=== PATIENT | female | born 1980 | race Caucasian/White ===

== ENCOUNTER 2018-04-12 08:44 | Emergency (ER) | payer MEDICAID ==
[2018-04-12] MEDS ORDERED: ACETAMINOPHEN 325 MG TABLET PO ONE (09:20)
--- NOTE | 2018-04-12 09:26 | ER Document Report ---
ED Extremity Problem, Lower - General Chief Complaint: Foot Pain Stated Complaint: RIGHT FOOT PAIN Time Seen by Provider: 04/12/18 09:08 Mode of Arrival: Ambulatory Information source: Patient Notes: 38-year-old female presented to ED for complaint of pain to the right foot and ankle after she injured it Monday night while she was intoxicated. She is not sure what she did to it yesterday morning she states she was still slightly intoxicated so it did not hurt but by yesterday afternoon the pain was getting more severe. She is alert and oriented pupils equal react to light speaking in full sentences does walk with a steady gait with a slight limp. TRAVEL OUTSIDE OF THE [place] IN LAST 30 DAYS: No - HPI Patient complains to provider of: Injury, Pain. No: Swelling Location: Ankle, Foot Occurred: Other - Monday Where: Public place Onset/Duration: Persistent Quality of pain: Sharp Severity: Moderate Pain Level: 4 Context: Wearing shoes Recent injury: Yes Associated symptoms: Painful ambulation Exacerbated by: Movement, Walking Relieved by: Elevation, Ice, Rest - Related Data Allergies/Adverse Reactions: No Known Allergies Allergy (Verified 04/12/18 08:47) Past Medical History - Social History Smoking Status: Current Every Day Smoker Cigarette use (# per day): Yes - 3 per day Chew tobacco use (# tins/day): No Smoking Education Provided: Yes - 4 minutes Frequency of alcohol use: Social Drug Abuse: Marijuana Occupation: [employer] Lives with: Family Family History: Reviewed & Not Pertinent Patient has suicidal ideation: No Patient has homicidal ideation: No - Past Medical History Cardiac Medical History: Reports: Hx Hypertension - Press syndrome Pulmonary Medical History: Reports: None EENT Medical History: Reports: None Neurological Medical History: Reports: None Endocrine Medical History: Reports: None Renal/ Medical History: Reports: None Malignancy Medical History: Reports: None GI Medical History: Reports: None Musculoskeltal Medical History: Reports None Skin Medical History: Reports None Psychiatric Medical History: Reports: None Traumatic Medical History: Reports: None Infectious Medical History: Reports: None Past Surgical History: Reports: Hx Section, Hx Gynecologic Surgery - c- section 5 months ago - Immunizations Hx Diphtheria, Pertussis, Tetanus Vaccination: No Review of Systems - Review of Systems Constitutional: No symptoms reported EENT: No symptoms reported Cardiovascular: No symptoms reported Respiratory: No symptoms reported Gastrointestinal: No symptoms reported Genitourinary: No symptoms reported Female Genitourinary: No symptoms reported Musculoskeletal: Ankle swelling - Right foot and ankle pain Skin: No symptoms reported Hematologic/Lymphatic: No symptoms reported Neurological/Psychological: No symptoms reported -: Yes All other systems reviewed and negative Physical Exam - Vital signs Vitals: Temp Pulse Resp BP Pulse Ox 97.7 F 75 18 142/109 H 97 04/12/18 08:49 04/12/18 08:49 04/12/18 08:49 04/12/18 08:49 04/12/18 08:49 Interpretation: Normal - General General appearance: Appears well, Alert - HEENT Head: Normocephalic, Atraumatic Eyes: Normal Pupils: PERRL - Respiratory Respiratory status: No respiratory distress Chest status: Nontender Breath sounds: Normal Chest palpation: Normal - Cardiovascular Rhythm: Regular Heart sounds: Normal auscultation Murmur: No - Abdominal Inspection: Normal Distension: No distension Bowel sounds: Normal Tenderness: Nontender Organomegaly: No organomegaly - Back Back: Normal, Nontender - Extremities General upper extremity: Normal inspection, Nontender, Normal color, Normal ROM , Normal temperature General lower extremity: Normal color, Normal temperature, Normal weight bearing. No: Jillian's sign Ankle: Tender, Ecchymosis, Edema Foot: Tender, Ecchymosis, Edema, No evidence of FB - Neurological Neuro grossly intact: Yes Cognition: Normal Orientation: AAOx4 Ni Coma Scale Eye Opening: Spontaneous Ni Coma Scale Verbal: Oriented Sumner Coma Scale Motor: Obeys Commands Ni Coma Scale Total: 15 Speech: Normal Motor strength normal: LUE, RUE, LLE, RLE Sensory: Normal - Psychological Associated symptoms: Normal affect, Normal mood - Skin Skin Temperature: Warm Skin Moisture: Dry Skin Color: Normal Course - Re-evaluation Re-evalutation: 04/12/18 10:45 The patient is nontoxic appearing with stable vitals. They are afebrile. Ankle exam shows no deformities with no obvious ligament instability. There is a normal pulse and sensation distally. There is no redness or signs of infection. X-rays show no acute fracture per the radiologist. Patient will be placed in an Joel wrap for comfort. Crutches will be offered and given if requested. Patient will be instructed to follow-up with not better in 1 week, sooner for increasing pain, fever, redness, numbness, tingling, weakness, any further concerns. Patient will be instructed to rest, ice, elevate their ankle. - Vital Signs Vital signs: Temp Pulse Resp BP Pulse Ox 97.6 F 54 L 20 150/106 H 98 04/12/18 11:01 04/12/18 11:01 04/12/18 11:01 04/12/18 11:01 04/12/18 11:01 - Diagnostic Test Radiology reviewed: Image reviewed, Reports reviewed Procedures - Immobilization Right Ankle Immobilizer type: Joel wrap, Crutches Performed by: PCT Post-Proc Neuro Vasc Exam: Normal Alignment checked and good: Yes Discharge - Discharge Clinical Impression: Right ankle sprain Qualifiers: Encounter type: initial encounter Involved ligament of ankle: unspecified ligament Qualified Code(s): S93.401A - Sprain of unspecified ligament of right ankle, initial encounter Contusion of right foot Qualifiers: Encounter type: initial encounter Qualified Code(s): S90.31XA - Contusion of right foot, initial encounter HTN (hypertension) Qualifiers: Hypertension type: unspecified Qualified Code(s): I10 - Essential (primary) hypertension Condition: Stable Disposition: HOME, SELF-CARE Additional Instructions: SPRAINED ANKLE: Your sprained ankle results from stretching or tearing of the ligaments which support the ankle. This usually results from twisting the foot inward and under. The ligaments will require time and protection in order to heal properly. Many ankle sprains are quite disabling, and should be taken seriously. The usual treatment for an ankle sprain is cold packs; protection with tape , splints, or wraps; elevation; and staying off the ankle for at least a day. As the ankle improves, you can walk IF it's not painful to bear weight. Sports are best postponed until healing is complete. More serious sprains usually require strengthening exercises after early healing. Your physician has assessed the seriousness of the ligament injury to your ankle. However, the treatment may change, depending on how your ankle progresses. If further exams were recommended, it is important that you follow through. Call the doctor if your foot becomes numb, painful, or severely swollen. Contusion Your injury has resulted in a contusion -- a crushing of the deep tissues. No injury to important structures was detected during the physician's exam. Contusions vary in the amount of pain they cause, and in the length of time required for healing. Typically, the area will become bruised, and will remain painful to touch for two or three weeks. However, most patients are back to working and playing within a few days. After the initial period of rest and cold-packs, your symptoms (together with the doctor's recommendations) will determine how rapidly you can get back to full activity. Usually this means "do what feels okay, but don't do things that hurt." If re-examination was recommended, it's important to follow up as instructed. Call the doctor or return any time if pain increases, if swelling becomes severe, if you develop numbness or weakness in an injured extremity, or if any other alarming symptoms occur. JOEL WRAP: A compression dressing (joel wrap) has been placed. This helps hold the area still. It limits swelling and internal bleeding. The wrap should be comfortably snug -- not tight. You should feel a sense of pressure, but not severe pain under the wrap. Unless the physician tells you otherwise, you can adjust the wrap for comfort. If the wrap causes symptoms suggesting it's too tight -- uncomfortable pressure, swelling or discoloration beyond the wrap, numbness, or severe pain - - you must loosen the wrap. If these symptoms don't resolve promptly, return for re-evaluation. USE OF CRUTCHES: The doctor has recommended that you not bear weight at this time. You will need to use crutches. Adjust the crutches so the tops come to about two inches under the armpit while you are standing upright. Use your hands -- not your armpits -- to support your weight. To get into a chair, support yourself with one crutch on the injured side. Hold the chair with the other hand, then lower yourself while putting all your weight on the good leg. Going up stairs is `good leg up, step up, then bring up crutches and bad leg.' Down stairs is `bad leg and crutches down, then bring good leg down.' If you develop numbness or swelling in an arm or hand, you are using the crutches incorrectly. Return if you are having any problems with the crutches. ICE & ELEVATION: Apply ice packs frequently against the painful area. Many different schedules are recommended, such as "20 minutes on, 20 minutes off" or "one hour ice, two hours rest." If you need to work, you may need to go longer between ice treatments. You should plan to have the area ice packed AT LEAST one- fourth of the time. The ice should be applied over the wrap, tape, or splint, or over a layer of cloth -- not directly against the skin. Some ice bags have a built-in cloth and can be put directly on the skin. Your injured part should be elevated as much as possible over the next 48 hours. Try to keep the injury above the level of the heart. Avoid use of the injured area. Elevation and rest will decrease the swelling. USE OF HPIG-HVC-VOAXAXB IBUPROFEN: Ibuprofen (Advil, Nuprin, Medipren, Motrin IB) is a medication for fever and pain control. In addition, it has anti- inflammatory effects which may be beneficial, especially in the treatment of injuries. It's best to take ibuprofen with food. Persons with ulcer disease or allergy to aspirin should notify their physician of this before taking ibuprofen. Ibuprofen can be given every four to six hours, for a total of four doses daily. Age Pain or fever dose Antiinflammatory dose 6-8 yr 200 mg (1 tab) 200 mg (1 tab) 9-11 yr 200 mg (1 tab) 200-400 mg (1-2 tab) 11-14 yr 200-400 mg (1-2 tab) 400 mg (2 tab) 15-adult 400 mg (2 tab) 600 mg (3 tab) FOLLOW-UP CARE: If you have been referred to a physician for follow-up care, call the physician s office for an appointment as you were instructed or within the next two days. If you experience worsening or a significant change in your symptoms, notify the physician immediately or return to the Emergency Department at any time for re-evaluation. Forms: Elevated Blood Pressure, Return to Work Referrals: TAYLER LYLE MD [Primary Care Provider] - Follow up as needed JORGE A BARNETT MD [ACTIVE STAFF] - Follow up as needed
--- NOTE | 2018-04-12 10:38 | RADIOLOGY REPORT (SQ) ---
EXAM DESCRIPTION: ANKLE RIGHT COMPLETE COMPLETED DATE/TIME: 04/12/2018 10:01 am REASON FOR STUDY: Pain from injury 2 days ago was intoxicated COMPARISON: None. NUMBER OF VIEWS: Three views. TECHNIQUE: AP, lateral, and oblique radiographic images acquired of the right ankle. LIMITATIONS: None. FINDINGS: MINERALIZATION: Normal. BONES: No acute fracture or dislocation. No worrisome bone lesions. JOINTS: No effusions. SOFT TISSUES: No soft tissue swelling. No foreign body. OTHER: No other significant finding. IMPRESSION: NEGATIVE STUDY OF THE RIGHT ANKLE. NO RADIOGRAPHIC EVIDENCE OF ACUTE INJURY. TECHNICAL DOCUMENTATION: JOB ID: [id number] [employer]- All Rights Reserved Reading location - IP/workstation name: [email or web address]
--- NOTE | 2018-04-12 10:40 | RADIOLOGY REPORT (SQ) ---
EXAM DESCRIPTION: FOOT RIGHT COMPLETE COMPLETED DATE/TIME: 04/12/2018 10:01 am REASON FOR STUDY: Pain from injury 2 days ago was intoxicated COMPARISON: None. NUMBER OF VIEWS: Three views. TECHNIQUE: AP, lateral and oblique radiographic images acquired of the right foot. LIMITATIONS: None. FINDINGS: MINERALIZATION: Normal. BONES: No acute fracture or dislocation. No worrisome bone lesions. JOINTS: No effusions. SOFT TISSUES: No soft tissue swelling. No foreign body. OTHER: Separate bony ossicle is identified at the level of the medial malleolus and adjacent to the c uboid tarsal bone which are not felt to represent acute fractures. IMPRESSION: NEGATIVE STUDY OF THE RIGHT FOOT. NO RADIOGRAPHIC EVIDENCE OF ACUTE INJURY. TECHNICAL DOCUMENTATION: JOB ID: [id number] [employer]- All Rights Reserved Reading location - IP/workstation name: [email or web address]
[2018-04-12 11:02] VITALS: BP 150/106
== END 2018-04-12 11:03 | disposition home or self-care (01) ==
LOC: ER 08:44
DX: S93.401A Sprain of unspecified ligament of right ankle, initial encounter (principal); S90.31XA Contusion of right foot, initial encounter; X58.XXXA Exposure to other specified factors, initial encounter; I10 Essential (primary) hypertension; F17.210 Nicotine dependence, cigarettes, uncomplicated; Z71.6 Tobacco abuse counseling
CPT/HCPCS: 99406; 99283; 73610; 73630; J3490

== ENCOUNTER 2018-07-09 14:18 | Emergency (ER) | payer MEDICAID ==
[2018-07-09 14:35] VITALS: BP 124/81
--- NOTE | 2018-07-09 15:36 | ER Document Report ---
HPI - HPI Patient complains to provider of: test positive Onset: Yesterday Onset/Duration: Gradual Pain Level: Denies Context: Patient states she has a history of hypertension and notes that she is on medications that should be adjusted due to recently finding out that she is . Patient denies any symptoms other than a concern about her medication regimen. Associated Symptoms: None Exacerbated by: Denies Relieved by: Denies Similar symptoms previously: No Recently seen / treated by doctor: No - ROS ROS below otherwise negative: Yes Systems Reviewed and Negative: Yes All other systems reviewed and negative - CONSTITUTIONAL Constitutional: DENIES: Fever - CARDIOVASCULAR Cardiovascular: DENIES: Chest pain - GASTROINTESTINAL Gastrointestinal: DENIES: Abdominal Pain - URINARY Urinary: DENIES: Dysuria, Urgency, Frequency - REPRODUCTIVE Reproductive: REPORTS: :. 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 IN LAST 30 DAYS: No - HEENT HEENT: Atraumatic, Normal ENT Exam, Normocephalic - NECK Neck: Normal Inspection, Supple - RESPIRATORY Respiratory: Breath Sounds Normal, No Respiratory Distress - CARDIOVASCULAR Cardiovascular: Regular Rate, Regular Rhythm - BACK Back: Normal Inspection - MUSCULOSKELETAL/EXTREMETIES Musculoskeletal/Extremeties: MAEW - NEURO Level of Consciousness: Awake, Alert, Appropriate Motor/Sensory: No Motor Deficit - DERM Integumentary: Warm, Dry, No Rash Course - Re-evaluation Re-evalutation: 07/09/18 16:[address] Butler regarding patient presentation and concern about hypertension medications. Advises follow-up in the office tomorrow at 930 and have patient bring all of her medications. States patient's history of antihypertensive use is too complex to be addressed over the phone and that a physician will need to talk with her about all the risks with adjusting her medications. - Vital Signs Vital signs: Temp Pulse Resp BP Pulse Ox 98.3 F 63 18 124/81 100 07/09/18 14:33 07/09/18 14:33 07/09/18 14:33 07/09/18 14:33 07/09/18 14:33 - Laboratory Laboratory results interpreted by me: 07/09/18 16:12 Labs- Entire Visit 07/09/18 15:35 Urine HCG, Qual POSITIVE H Discharge - Discharge Clinical Impression: test positive, Hx of essential hypertension Condition: Stable Disposition: HOME, SELF-CARE Instructions: ([facility]) Additional Instructions: Return immediately for any new or worsening symptoms Followup with [facility] tomorrow at 9:30 in the morning. Be sure to bring all your medication bottles with you at that time. Forms: Smoking Cessation Education Referrals: [facility] [Provider Group] - Follow up tomorrow
== END 2018-07-09 16:48 | disposition home or self-care (01) ==
LOC: ER 14:18
DX: Z32.01 Encounter for pregnancy test, result positive (principal); I10 Essential (primary) hypertension; Z79.899 Other long term (current) drug therapy; F17.200 Nicotine dependence, unspecified, uncomplicated
CPT/HCPCS: 81025; 99282

== ENCOUNTER → 2019-08-26 | Outpatient (CLI) | payer SELFPAY ==
--- NOTE | 2019-08-26 16:23 | RADIOLOGY REPORT (SQ) ---
EXAM DESCRIPTION: U/S [id number] TRNABD 1GES W/ODOP COMPLETED DATE/TIME: 08/26/2019 2:36 pm REASON FOR STUDY: Z34.81 ENCOUNTER FOR SUPRVSN OF NORMAL , FIRST TRIMESTER Z34.81 ENCOUNTE R FOR SUPRVSN OF NORMAL , FIRST TRIM COMPARISON: No previous this TECHNIQUE: Transabdominal static and realtime grayscale images acquired of the pelvis. Additional se lected spectral and color Doppler images recorded. All images stored on PACs. bHCG: Unavailable CLINICAL DATES: Unknown LIMITATIONS: Ovaries not seen due to adnexal bowel gas FINDINGS: FETUS: Single Living intrauterine . ULTRASOUND EGA: 6 weeks 3 days ULTRASOUND RASHAD: 04/17/2020 EFW: Not applicable less than 20 weeks. CRL: 6 mm FHR: 123 beats per minute. SURVEY: Too early to assess AMNIOTIC FLUID: Adequate amount. PLACENTA: Not yet developed due to early gestation. SUBCHORIONIC BLEED: No SIZE OF BLEED: Not applicable. UTERUS: No masses. No anomalies. Uterus is 11 x 8 x 5 cm in size CERVICAL LENGTH: 4 cm in length. Closed. RIGHT ADNEXA: Ovary not identified due to poor acoustical window. No adnexal free fluid. No adnexal masses. LEFT ADNEXA: Ovary not identified due to poor acoustical window. No adnexal free fluid. No adnexal masses. FREE FLUID: None. OTHER: No other significant finding. IMPRESSION: LIVING INTRAUTERINE . EGA 6 weeks 3 days, embryo cardiac activity 123 beats per minute Ovaries not identified due to limited acoustic window Trimester of : First trimester - 0 to 13 weeks. TECHNICAL DOCUMENTATION: JOB ID: [id number] [employer]- All Rights Reserved rev Reading location - IP/workstation name: [email or web address]
== END ==
LOC: RAD 13:41
PROVIDERS: ATTEND Nurse Practitioner Family
DX: Z34.81 Encounter for supervision of other normal pregnancy, first trimester (principal)
CPT/HCPCS: 76801

== ENCOUNTER 2020-03-17 10:10 | Outpatient (CLI) | payer MEDICAID ==
[2020-03-17 10:42] LABS: APPEARANCE,URINE SLIGHTLY-CLOUDY; BILIRUBIN,URINE NEGATIVE (NEGATIVE); COLOR,URINE YELLOW; GLUCOSE, URINE NEGATIVE (NEGATIVE); KETONES,URINE NEGATIVE (NEGATIVE); LEUKOCYTE ESTERASE,URINE MODERATE (NEGATIVE); NITRITE,URINE NEGATIVE (NEGATIVE); PROTEIN,URINE 30 mg/dL (NEGATIVE); URINE SPECIFIC GRAVITY 1.012; UROBILINOGEN,URINE NEGATIVE mg/dL (<2.0)
[2020-03-17 10:57] LABS: ABSOLUTE EOSINOPHILS # (AUTO) 0.3 10^3/uL (0.0-0.6); ABSOLUTE LYMPHOCYTES (AUTO) 1.6 10^3/uL (0.5-4.7); ABSOLUTE MONOCYTES (AUTO) 0.8 10^3/uL (0.1-1.4); ABSOLUTE NEUT (AUTO) 11.5 10^3/uL (1.7-8.2); BASOPHILS % (AUTO) 0.1 % (0-2); EOSINOPHILS % (AUTO) 2.2 % (0-6); HEMATOCRIT 34.1 % (36.0-47.0); HEMOGLOBIN 11.8 g/dL (12.0-15.5); LYMPHOCYTES % (AUTO) 11.2 % (13-45); MEAN CORPUSCULAR HGB CONC 34.6 g/dL (32.0-36.0); MEAN CORPUSCULAR VOLUME 84 fl (80-97); MONOCYTES % (AUTO) 5.6 % (3-13); PLATELET COUNT 283 10^3/uL (150-450); RED BLOOD COUNT 4.07 10^6/uL (3.72-5.28); RED CELL DISTRIBUTION WIDTH 13.5 % (11.5-14.0); SEGMENTED NEUTROPHILS % (AUTO) 80.9 % (42-78); TOTAL CELLS COUNTED % (AUTO) 100 %; WHITE BLOOD COUNT 14.2 10^3/uL (4.0-10.5)
[2020-03-17 11:10] LABS: UR PRO/CREAT RATIO RESULT 0.2 mg/mg (0.0-0.2); URINE CREATININE 95.6 mg/dL (16-327); URINE PROTEIN 19.2 mg/dL (<12)
[2020-03-17 11:12] LABS: URINE AMPHETAMINES SCREEN NEGATIVE; URINE BARBITURATES SCREEN NEGATIVE; URINE BENZODIAZEPINES SCREEN NEGATIVE; URINE COCAINE SCREEN NEGATIVE; URINE MARIJUANA (THC) SCREEN NEGATIVE; URINE METHADONE SCREEN NEGATIVE; URINE PHENCYCLIDINE SCREEN NEGATIVE
[2020-03-17 11:14] LABS: BACTERIA (WET MOUNT) 3+ BACTERIA SEEN; T.VAGINALIS (WET MOUNT) NO TRICHOMONAS SEEN; WBCS (WET MOUNT) 1+ WBCS SEEN; YEAST (WET MOUNT) NO YEAST SEEN
[2020-03-17 11:16] LABS: ALBUMIN 3.3 g/dL (3.5-5.0); ALKALINE PHOSPHATASE 109 U/L (38-126); ANION GAP 5 (5-19); ASPARTATE AMINO TRANSFERASE 23 U/L (14-36); BILIRUBIN,TOTAL 0.2 mg/dL (0.2-1.3); BLOOD UREA NITROGEN 3 mg/dL (7-20); CALCIUM 9.3 mg/dL (8.4-10.2); CARBON DIOXIDE 23 mmol/L (22-30); CHLORIDE 108 mmol/L (98-107); GLUCOSE 107 mg/dL (75-110); POTASSIUM 3.8 mmol/L (3.6-5.0); TOTAL PROTEIN 6.2 g/dL (6.3-8.2); URIC ACID 5.6 mg/dL (2.5-7.0)
[2020-03-17 12:42] LABS: CHLAM PCR NOT DETECTED (NOT DETECT)
== END 2020-03-17 11:37 | disposition home or self-care (01) ==
LOC: LC 10:10
PROVIDERS: ATTEND Obstetrics & Gynecology
DX: O14.93 Unspecified pre-eclampsia, third trimester (principal); Z3A.36 36 weeks gestation of pregnancy
CPT/HCPCS: 36415; 59025; 80053; 80307; 81001; 82570; 83615; 84156; 84550; 85025; 87081; 87210; 87491; 87591

== ENCOUNTER 2020-03-20 14:28 | Outpatient (CLI) | payer MEDICAID ==
[2020-03-20 15:51] LABS: APPEARANCE,URINE SLIGHTLY-CLOUDY; BILIRUBIN,URINE NEGATIVE (NEGATIVE); COLOR,URINE YELLOW; GLUCOSE, URINE NEGATIVE (NEGATIVE); KETONES,URINE NEGATIVE (NEGATIVE); LEUKOCYTE ESTERASE,URINE SMALL (NEGATIVE); NITRITE,URINE NEGATIVE (NEGATIVE); PROTEIN,URINE NEGATIVE (NEGATIVE); URINE SPECIFIC GRAVITY 1.009; UROBILINOGEN,URINE NEGATIVE mg/dL (<2.0)
[2020-03-20 16:11] LABS: URINE AMPHETAMINES SCREEN NEGATIVE; URINE BARBITURATES SCREEN NEGATIVE; URINE BENZODIAZEPINES SCREEN NEGATIVE; URINE COCAINE SCREEN NEGATIVE; URINE MARIJUANA (THC) SCREEN NEGATIVE; URINE METHADONE SCREEN NEGATIVE; URINE PHENCYCLIDINE SCREEN NEGATIVE
[2020-03-20 16:20] LABS: ABSOLUTE BASOPHILS # (AUTO) 0.1 10^3/uL (0.0-0.2); ABSOLUTE EOSINOPHILS # (AUTO) 0.3 10^3/uL (0.0-0.6); ABSOLUTE LYMPHOCYTES (AUTO) 1.8 10^3/uL (0.5-4.7); ABSOLUTE NEUT (AUTO) 10.6 10^3/uL (1.7-8.2); BASOPHILS % (AUTO) 0.6 % (0-2); EOSINOPHILS % (AUTO) 2.5 % (0-6); HEMATOCRIT 33.3 % (36.0-47.0); HEMOGLOBIN 11.6 g/dL (12.0-15.5); LYMPHOCYTES % (AUTO) 13.2 % (13-45); MEAN CORPUSCULAR HEMOGLOBIN 29.1 pg (27.0-33.4); MEAN CORPUSCULAR HGB CONC 34.8 g/dL (32.0-36.0); MEAN CORPUSCULAR VOLUME 84 fl (80-97); MONOCYTES % (AUTO) 7.1 % (3-13); PLATELET COUNT 260 10^3/uL (150-450); RED BLOOD COUNT 3.99 10^6/uL (3.72-5.28); RED CELL DISTRIBUTION WIDTH 13.6 % (11.5-14.0); SEGMENTED NEUTROPHILS % (AUTO) 76.6 % (42-78); TOTAL CELLS COUNTED % (AUTO) 100 %; WHITE BLOOD COUNT 13.8 10^3/uL (4.0-10.5)
[2020-03-20 16:28] LABS: URINE PROTEIN 25.2 mg/dL (<12)
[2020-03-20 16:29] LABS: 24 HOUR URINE PROTEIN RESULT 640 mg/day (42-225)
[2020-03-20 16:45] LABS: ALBUMIN 3.2 g/dL (3.5-5.0); ALKALINE PHOSPHATASE 113 U/L (38-126); ANION GAP 7 (5-19); ASPARTATE AMINO TRANSFERASE 26 U/L (14-36); BILIRUBIN,TOTAL 0.2 mg/dL (0.2-1.3); BLOOD UREA NITROGEN 4 mg/dL (7-20); CALCIUM 9.6 mg/dL (8.4-10.2); CARBON DIOXIDE 22 mmol/L (22-30); CHLORIDE 106 mmol/L (98-107); GLUCOSE 102 mg/dL (75-110); POTASSIUM 3.6 mmol/L (3.6-5.0); TOTAL PROTEIN 6.1 g/dL (6.3-8.2); URIC ACID 5.1 mg/dL (2.5-7.0)
--- NOTE | 2020-03-23 09:40 | Non Stress Test Report ---
Non Stress Test Datetime Report Generated by CPN: 03/23/2020 09:40 DEMOGRAPHIC EGA NST: 36.4 EGA NST: 36.1 INDICATION Indication for Study (NST) Other: Provider Order Indication for Study (NST) Other: Pre-e workup,nonreactive NSt in office MONITORING Monitor Explained: Monitor Explained; Test Explained; Patient Verbalized Understanding Monitor Explained: Monitor Explained; Test Explained; Patient Verbalized Understanding Time on Monitor: 03/20/2020 16:09 Time on Monitor: 03/17/2020 10:19 Time off Monitor: 03/20/2020 16:50 Time off Monitor: 03/17/2020 11:28 NST Duration: 41 NST Duration: 69 NST INTERVENTIONS NST Interventions: PO Hydration NST Interventions: PO Hydration Physician Notified NST: AWynn,CNM Physician Notified NST: A Drake CNM BABY A: [id number] BABY A Movement : Present Movement : Present Contraction Frequency : None Contraction Frequency : none FHR Baseline : 135 Accelerations : 15X15 Accelerations : 15X15 Decelerations : None Decelerations : None Variability : Moderate 6-25bpm Variability : Moderate 6-25bpm NST Review: Meets Criteria for Reactive NST NST Review: Meets Criteria for Reactive NST NST Review and Verified By : Omar Moulton RN NST Results: Reactive NST Results: Reactive NST REPORT Report Trigger: Send Report
[2020-03-24 12:36] LABS: HEPATITIS C QUANTITATION HCV Not Detected IU/mL (.)
== END 2020-03-20 17:07 | disposition home or self-care (01) ==
LOC: LC 14:28
PROVIDERS: ATTEND Obstetrics & Gynecology
DX: O11.3 Pre-existing hypertension with pre-eclampsia, third trimester (principal); O10.913 Unspecified pre-existing hypertension complicating pregnancy, third trimester; O99.333 Smoking (tobacco) complicating pregnancy, third trimester; F17.210 Nicotine dependence, cigarettes, uncomplicated; O09.523 Supervision of elderly multigravida, third trimester; Z3A.36 36 weeks gestation of pregnancy
CPT/HCPCS: 36415; 59025; 80053; 80307; 81005; 83615; 84156; 84550; 85025; 87522

== ENCOUNTER 2020-03-23 05:58 | Inpatient (IN) | payer MEDICAID ==
[2020-03-16 09:35] LABS: ABSOLUTE EOSINOPHILS # (AUTO) 0.4 10^3/uL (0.0-0.6); ABSOLUTE LYMPHOCYTES (AUTO) 1.9 10^3/uL (0.5-4.7); ABSOLUTE MONOCYTES (AUTO) 1.1 10^3/uL (0.1-1.4); ABSOLUTE NEUT (AUTO) 13.3 10^3/uL (1.7-8.2); BASOPHILS % (AUTO) 0.2 % (0-2); EOSINOPHILS % (AUTO) 2.2 % (0-6); HEMATOCRIT 35.7 % (36.0-47.0); HEMOGLOBIN 12.1 g/dL (12.0-15.5); LYMPHOCYTES % (AUTO) 11.1 % (13-45); MEAN CORPUSCULAR HEMOGLOBIN 28.4 pg (27.0-33.4); MEAN CORPUSCULAR HGB CONC 33.9 g/dL (32.0-36.0); MEAN CORPUSCULAR VOLUME 84 fl (80-97); MONOCYTES % (AUTO) 6.7 % (3-13); PLATELET COUNT 274 10^3/uL (150-450); RED BLOOD COUNT 4.26 10^6/uL (3.72-5.28); RED CELL DISTRIBUTION WIDTH 13.5 % (11.5-14.0); SEGMENTED NEUTROPHILS % (AUTO) 79.8 % (42-78); TOTAL CELLS COUNTED % (AUTO) 100 %; WHITE BLOOD COUNT 16.7 10^3/uL (4.0-10.5)
[2020-03-16 09:41] LABS: APPEARANCE,URINE CLEAR; BILIRUBIN,URINE NEGATIVE (NEGATIVE); COLOR,URINE YELLOW; GLUCOSE, URINE NEGATIVE (NEGATIVE); KETONES,URINE NEGATIVE (NEGATIVE); LEUKOCYTE ESTERASE,URINE SMALL (NEGATIVE); NITRITE,URINE NEGATIVE (NEGATIVE); PROTEIN,URINE NEGATIVE (NEGATIVE); URINE SPECIFIC GRAVITY 1.008; UROBILINOGEN,URINE NEGATIVE mg/dL (<2.0)
[2020-03-16 09:58] LABS: URINE AMPHETAMINES SCREEN NEGATIVE; URINE BARBITURATES SCREEN NEGATIVE; URINE BENZODIAZEPINES SCREEN NEGATIVE; URINE COCAINE SCREEN NEGATIVE; URINE MARIJUANA (THC) SCREEN NEGATIVE; URINE METHADONE SCREEN NEGATIVE; URINE PHENCYCLIDINE SCREEN NEGATIVE
[~2020-03-23 05:58] MED LIST: CEFAZOLIN SODIUM 2 GM in DEXTROSE 5%-WATER 100 ML IV PRN; LACTATED RINGERS 1000 ML IV PRN; LIDOCAINE 0.5% INJ-PF (5 MG/ML) 50 ML SDV SUBCUT PRN; RINGERS SOLUTION,LACTATED 1,000 ML IV PRN
[2020-03-23] MEDS ORDERED: RINGERS SOLUTION,LACTATED 1,000 ML IV ONE (06:45)
[2020-03-23] MEDS ORDERED: FENTANYL CITRATE INJ/PF 100 MCG/2 ML AMPUL ONE (07:25)
[2020-03-23] MEDS ORDERED: MIDAZOLAM 2 MG/2 ML INJ ONE (07:25)
[2020-03-23] MEDS ORDERED: KETOROLAC TROMETHAMINE INJ/PF 30 MG/1 ML SDV ONE (07:25)
[2020-03-23] MEDS ORDERED: EPHEDRINE SULFATE INJ 50 MG/1 ML AMPULE ONE (07:25)
[2020-03-23] MEDS ORDERED: OXYTOCIN 10 UNIT/ML VIAL ONE (07:25)
[2020-03-23] MEDS ORDERED: ACETAMINOPHEN 1,000 MG/100 ML RTUPB IV ONE (07:26)
[2020-03-23] MEDS ORDERED: METHYLERGONOVINE MALEATE INJ/PF 0.2 MG/1 ML AMPULE ONE (07:26)
[2020-03-23] MEDS ORDERED: ONDANSETRON HCL INJ/PF 4 MG/2 ML SDV ONE (07:26)
[2020-03-23] MEDS ORDERED: OXYCODONE-ACETAMINOPHEN 5-325 MG TABLET PO PRN ×3 (10:28→11:18)
[2020-03-23] MEDS ORDERED: ONDANSETRON HCL INJ/PF 4 MG/2 ML SDV IV PRN (10:28)
[2020-03-23] MEDS ORDERED: MEPERIDINE HCL/PF INJ 25 MG/1 ML DISP.SYRIN IV PRN (10:28)
[2020-03-23] MEDS ORDERED: DIPHENHYDRAMINE HCL 50 MG/ML VIAL IV PRN (10:28)
[2020-03-23] MEDS ORDERED: PROMETHAZINE HCL INJ 25 MG/1 ML VIAL IV PRN ×3 (10:28→11:18)
[2020-03-23] MEDS ORDERED: FENTANYL CITRATE INJ/PF 100 MCG/2 ML AMPUL IV PRN ×3 (10:28)
[2020-03-23] MEDS ORDERED: MORPHINE SULFATE 10 MG/ML INJ IV PRN (10:28)
[2020-03-23] MEDS ORDERED: MEASLES,MUMPS&RUBELLA VACC/PF 0.5 ML VIAL SUBCUT PRN (11:18)
[2020-03-23] MEDS ORDERED: SIMETHICONE 80 MG TAB.CHEW PO PRN (11:18)
[2020-03-23] MEDS ORDERED: DIPH/PERTUSS(ACELL)/TETANUS VAC/PF 0.5 ML SYR (>=10YO) IM PRN (11:18)
[2020-03-23] MEDS ORDERED: ACETAMINOPHEN 325 MG TABLET PO PRN (11:18)
[2020-03-23] MEDS ORDERED: RINGERS SOLUTION,LACTATED 1,000 ML IV PRN (11:18)
[2020-03-23] MEDS ORDERED: OXYTOCIN/NORMAL SALINE 20 UNIT/1,000 ML RTUINJ IV PRN (11:18)
[2020-03-23] MEDS ORDERED: ACETAMINOPHEN 1,000 MG/100 ML RTUPB IV PRN (11:18)
--- NOTE | 2020-03-23 11:40 | Brief Operative Note ---
BRIEF OPERATIVE REPORT DATE OF SURGERY: 03/23/20 TIME OF SURGERY: 11:00 PREOPERATIVE DIAGNOSIS: History Hepatitis C, History of section, CHTN uncontrolled, 37+0ega POSTOPERATIVE DIAGNOSIS: MARYLU delivered SURGEON: ESTEVAN PEÑA FINDINGS: VFI, delivered at 1031, Back down transverse converted to breech for delivery. Weight 2670g, 5#14oz, Apgars 8/9 IVF 1200ml, UOP 150ml COMPLICATIONS: None ESTIMATED BLOOD LOSS: 600ml TISSUE REMOVED OR ALTERED: placenta and cord TECHNICAL PROCEDURE: Repeat Section, Scar revision
[2020-03-23] MEDS ORDERED: HYDRALAZINE HCL INJ/PF 20 MG/1 ML SDV ONE (11:58)
[2020-03-23] MEDS ORDERED: HYDRALAZINE HCL INJ/PF 20 MG/1 ML SDV IV ONE ×3 (12:10→16:19)
[2020-03-23] MEDS ORDERED: HYDROMORPHONE HCL INJ/PF 2 MG/ML AMPULE ONE ×2 (12:21→15:42)
[2020-03-23] MEDS: HYDROMORPHONE HCL INJ/PF 2 MG/ML AMPULE IV PRN ×2 (12:25→15:46)
[2020-03-23] MEDS ORDERED: LABETALOL HCL INJ 20 MG/4 ML DISP.SYRIN IV ONE ×4 (13:32→15:00)
[2020-03-23] MEDS ORDERED: OXYCODONE-ACETAMINOPHEN 5-325 MG TABLET ONE (13:52)
[2020-03-23] MEDS: OXYCODONE-ACETAMINOPHEN 5-325 MG TABLET PO PRN ×3 (13:54→23:12)
[2020-03-23] MEDS ORDERED: LABETALOL HCL 200 MG TABLET ONE (14:06)
[2020-03-23] MEDS: LABETALOL HCL 200 MG TABLET PO SCH ×3 (14:07→21:35)
[2020-03-23] MEDS ORDERED: NIFEDIPINE 30 MG TAB.ER.24 PO ONE ×2 (15:14→15:42)
[2020-03-23] MEDS ORDERED: FUROSEMIDE INJ/PF 40 MG/4 ML SDV ONE (15:41)
[2020-03-23] MEDS ORDERED: FUROSEMIDE INJ/PF 20 MG/2 ML SDV IV ONE (16:00)
[2020-03-23] MEDS: LACTATED RINGERS 1000 ML IV PRN (16:02)
[2020-03-23] MEDS: KETOROLAC TROMETHAMINE INJ/PF 30 MG/1 ML SDV IV SCH (18:26)
[2020-03-23] MEDS: DOCUSATE SODIUM 100 MG CAPSULE PO SCH (18:26)
--- NOTE | 2020-03-23 21:33 | PDOC DELIVERY SUMMARY ---
Delivery Summary - Maternal Hx : IV Hx Para: I Hx # Pregnancies: 1 Hx Total # of Abortions (Sponateous & Elective): 2 Number of Living Children: 1 RASHAD: 04/13/20 Gestational Age: 37.0 Risk Factors: Gestational Diabetes, Other - malpresentation Ruptured Membranes: AROM Time of Rupture: 10:30 Fluids: Clear - Delivery Labor: Not In Labor Presentation: Tranverse Lie, Breech Heart Rate Monitoring: Done Pre-Operatively Uterine Contraction Monitoring: External Support Person Present: Yes - MICHAEL MOORE Location: OR : Scheduled Placenta: Within Normal Limits Placenta Description: normal Number of Vessels (Cord): 3 Nuchal Cord: No Delivery of Placenta Date: 03/23/20 Delivery of Placenta Time: 10:33 Estimated Blood Loss: 600 Delivery Quantitative Blood Loss (QBL): 247 - Medications Type of Anesthesia:: Spinal - Assess and Care Baby 1 Female Delivery of Infant Date: 03/23/20 Delivery of Infant Time: 10:31 at 1 minute: 8 at 5 minutes: 9 Preprinted Number On Band: [id number] Skin to Skin: No To Nursery At: 10:41 Mode of Transport: Bassinet Infant Delivery Weight: 2,670 Delivery Length: 18.5 in - Delivery Personnel Nursery RN: CALI SANCHEZ RN: MARIBETH SUAREZ MD: ESTEVAN PEÑA
[2020-03-24] MEDS: LACTATED RINGERS 1000 ML IV PRN (01:40)
[2020-03-24] MEDS: KETOROLAC TROMETHAMINE INJ/PF 30 MG/1 ML SDV IV SCH (01:40)
[2020-03-24] MEDS ORDERED: LIDOCAINE 0.5% INJ-PF (5 MG/ML) 50 ML SDV SUBCUT PRN (05:00)
[2020-03-24] MEDS: OXYCODONE-ACETAMINOPHEN 5-325 MG TABLET PO PRN ×3 (05:13→20:55)
[2020-03-24 07:17] LABS: HEMATOCRIT 29.8 % (36.0-47.0); HEMOGLOBIN 10.3 g/dL (12.0-15.5); MEAN CORPUSCULAR HGB CONC 34.6 g/dL (32.0-36.0); MEAN CORPUSCULAR VOLUME 84 fl (80-97); PLATELET COUNT 270 10^3/uL (150-450); RED BLOOD COUNT 3.57 10^6/uL (3.72-5.28); RED CELL DISTRIBUTION WIDTH 13.6 % (11.5-14.0); WHITE BLOOD COUNT 19.3 10^3/uL (4.0-10.5)
--- NOTE | 2020-03-24 08:59 | Operative Report ---
Operative Report DATE OF SURGERY: 03/23/20 PREOPERATIVE DIAGNOSIS: History Hepatitis C, History of section, CHTN uncontrolled, 37+0ega, malpresentation POSTOPERATIVE DIAGNOSIS: MARYLU OPERATION: Repeat section, Scar revision SURGEON: ESTEVAN PEÑA ANESTHESIA: Spinal TISSUE REMOVED OR ALTERED: placenta and cord COMPLICATIONS: None ESTIMATED BLOOD LOSS: 600 QUANTITATIVE BLOOD LOSS: 247 INTRAOPERATIVE FINDINGS: VFI, delivered at 1031, Back down transverse converted to breech for delivery. Weight 2670g, 5#14oz, Apgars 8/9 IVF 1200ml, UOP 150ml PROCEDURE: Anesthesia provider: [Dr. Juan Montes CRNA] Urine output: [150ml] IV fluids: [1200ml] Indications: [39yo at 37+0ega presents for repeat section. She has had a prior section due to PreE/HELLP and during this has uncontrolled hypertension. She desires nexplanon for contraception . She was counseled on the risks benefits and alternatives and desires to proceed with planned procedure. She has a history of hepatitis C (antibody positive but neg PCR). She desires to proceed with planned procedure.] Procedure: The patient was taken to the operating room where spinal anesthesia was obtained and found to be adequate. She was then prepped and draped in the normal sterile fashion and placed in the dorsal supine position with a leftward tilt. A Pfannenstiel skin incision was then made and carried through to the underlying layers of the fascia with the scalpel. The fascia was incised in the midline and the incision extended laterally with the Ortiz scissors. The superior aspect of the fascial incision was then grasped with Dwayne clamps elevated and the underlying rectus muscles dissected off [bluntly]. Attention was then turned to the inferior aspect of the fascial incision which in a similar fashion was grasped, tented up with Dwayne clamps, and the rectus muscles dissected off [bluntly]. The rectus muscles were then in the midline and the peritoneum at the amount identified and entered [bluntly]. The peritoneal incision was then extended superiorly and inferiorly with good visualization of the bladder. The bladder blade was inserted and the vesicouterine peritoneum identified grasped with [place] pickups and entered sharply with the Metzenbaum scissors. This incision was then extended laterally with the Metzenbaum scissors and a bladder flap created digitally. The bladder blade was then reinserted and the lower uterine segment incised in a transverse fashion with the scalpel. The uterine incision was then extended bluntly. The bladder blade was removed and the was noted to be in transverse back down apresentation and was converted to breech for delivery atraumatically. The nose and mouth were suctioned and the cord doubly clamped and cut. And the was handed off to waiting pediatricians. The placenta was then delivered spontaneously and the uterus exteriorized and cleared of all clots and debris. The uterine incision was then repaired with 1- 0 Vicryl in a running locked fashion. A second layer of the same suture was used to obtain hemostasis via imbrication of the initial layer. The bladder flap was then repaired with 3-0 chromic in a running fashion. The uterus was returned to the patient's abdomen and Interceed was placed overlying the uterine incision to prevent adhesions and surgicel was placed to assist with hemostasis. The gutters were cleared of all clots and debris. All operative sites were noted to be hemostatic. The fascia was reapproximated with 0 Vicryl in a running fashion from each lateral edge to the midline. The skin was closed with 3-0 Monocryl in a running subcuticular fashion with overlying Dermabond for additional dressing as well as wound closure. The patient tolerated the procedure well. Sponge lap needle and instrument counts are correct times2. 2 g of Ancef were given prior to skin incision. The patient was taken to the recovery area awake and in stable condition.
--- NOTE | 2020-03-24 09:04 | PDOC PROGRESS REPORT ---
Subjective-OB Progress Note for:: 03/24/20 - POD #1, doing well, no complaints, UOB, voiding, s/p Rpt . O+, rubella Immune, Bottle feeding Physical Exam (OB) Vital Signs: Temp Pulse Resp BP Pulse Ox 97.8 F 80 16 128/73 H 97 03/24/20 00:24 03/24/20 04:43 03/24/20 04:43 03/24/20 04:43 03/24/20 04:43 Intake & Output 03/23/20 03/24/20 03/25/20 06:59 06:59 06:59 Intake Total 1500 440 Output Total 1525 1250 Balance -25 -810 Weight 97.522 kg - General General Appearance: Appears well, Alert - PIH/Pre-Eclampsia Clonus: Negative Headache: Absent Epigastric Pain: No Visual Changes: No - Dressing Removed: - ANALYSIS REPORTING DEVELOPER Incision: Well Approximated Closure Type: Surgical Glue - Lochia Lochia Amount: Small 10-25 ml Lochia Color: Rubra/Red - Abdomen Description: Soft Hernia Present: No Fundal Description: Firm Fundal Height: u/u - u/2 - Respiratory Respiratory Status: No respiratory distress - Abdominal Distension: No distension Tenderness: Nontender - Genitourinary Genitourinary Note: voiding - Extremities Upper extremity: Normal inspection Lower extremities: Edema - Neurological Cognition: Normal Orientation: AAOx4 - Psychological Associated symptoms: Normal affect, Normal mood - Skin Skin Temperature: Warm Skin Moisture: Dry Objective-Diagnostic Laboratory: 03/24/20 06:42 03/24/20 06:42 WBC 19.3 H RBC 3.57 L Hgb 10.3 L Hct 29.8 L MCV 84 MCH 29.0 MCHC 34.6 RDW 13.6 Plt Count 270 Assessment and Plan(PN) - Assessment and Plan (1) Chronic hypertension affecting Is this a current diagnosis for this admission?: Yes (2) History of section Is this a current diagnosis for this admission?: Yes (3) S/P repeat low transverse Is this a current diagnosis for this admission?: Yes (4) History of hepatitis C Is this a current diagnosis for this admission?: Yes (5) Tobacco abuse Is this a current diagnosis for this admission?: Yes Plan:: Routine PP and Post Op orders, ambulation encouraged. - Time Spent with Patient Time with patient: Less than 15 minutes Medications reviewed and adjusted accordingly: Yes - Disposition Anticipated Discharge: Home Within: within 48 hours
[2020-03-24] MEDS: FUROSEMIDE 20 MG TABLET PO SCH (09:14)
[2020-03-24] MEDS: DOCUSATE SODIUM 100 MG CAPSULE PO SCH ×2 (09:14→17:09)
[2020-03-24] MEDS: PRENATAL VITAMIN W DHA CAPSULE PO SCH (09:14)
[2020-03-24] MEDS: IBUPROFEN 800 MG TABLET PO SCH ×2 (09:15→14:12)
[2020-03-24] MEDS: NIFEDIPINE 30 MG TAB.ER.24 PO SCH (09:15)
[2020-03-24] MEDS: LABETALOL HCL 200 MG TABLET PO SCH ×4 (10:05→21:45)
[2020-03-24] MEDS ORDERED: IBUPROFEN 800 MG TABLET PO SCH (12:00)
--- NOTE | 2020-03-24 14:34 | PDOC PROGRESS REPORT ---
Subjective-OB Progress Note for:: 03/24/20 - Called to room by RN to examine pts hernia Subjective: Pt states she has had a hernia all her life and it "gets like this" during her Physical Exam (OB) Vital Signs: Temp Pulse Resp BP Pulse Ox 97.5 F 82 18 150/97 H 100 03/24/20 11:00 03/24/20 11:00 03/24/20 11:00 03/24/20 11:00 03/24/20 11:00 Intake & Output 03/23/20 03/24/20 03/25/20 06:59 06:59 06:59 Intake Total 1500 1200 Output Total 1525 1850 Balance -25 -650 Weight 97.522 kg - PIH/Pre-Eclampsia Clonus: Negative Headache: Absent Epigastric Pain: No Visual Changes: No - Dressing Removed: No Incision: Open Closure Type: Surgical Glue - Lochia Lochia Amount: Scant < 10 ml Lochia Color: Rubra/Red - Abdomen Description: Soft Hernia Present: Yes Fundal Description: Firm, Midline Fundal Height: u/u - u/2 - Abdominal Inspection: Other - naval orange sized ? hernia noted above the umbilical area, no redness, nontender w/ palpation. Hernia actually resolved with my gentle palpation/ inspection of her abdoman. Distension: No distension Tenderness: Nontender - Genitourinary Genitourinary Note: voiding Objective-Diagnostic Laboratory: 03/24/20 06:42 03/24/20 06:42 WBC 19.3 H RBC 3.57 L Hgb 10.3 L Hct 29.8 L MCV 84 MCH 29.0 MCHC 34.6 RDW 13.6 Plt Count 270 Assessment and Plan(PN) - Assessment and Plan (1) Chronic hypertension affecting Is this a current diagnosis for this admission?: Yes (2) History of section Is this a current diagnosis for this admission?: Yes (3) S/P repeat low transverse Is this a current diagnosis for this admission?: Yes (4) History of hepatitis C Is this a current diagnosis for this admission?: Yes (5) Tobacco abuse Is this a current diagnosis for this admission?: Yes Plan:: D/w Dr Kapoor, since pt has an elevated WBC count, we will start Clindamycin for 24 hours, check CBC in the am. RN to place abdominal binder on pt for added abdominal support. Fever precautions reviewed. - Time Spent with Patient Medications reviewed and adjusted accordingly: Yes - Disposition Anticipated Discharge: Home
[2020-03-24] MEDS: CLINDAMYCIN 900 MG/D5W RTU 900 MG/50 ML RTUPB IV SCH ×2 (15:00→21:46)
[2020-03-25] MEDS: IBUPROFEN 800 MG TABLET PO SCH ×3 (02:18→10:21)
[2020-03-25] MEDS: OXYCODONE-ACETAMINOPHEN 5-325 MG TABLET PO PRN ×3 (02:19→12:09)
[2020-03-25] MEDS: CLINDAMYCIN 900 MG/D5W RTU 900 MG/50 ML RTUPB IV SCH ×2 (05:16→13:00)
[2020-03-25] MEDS: PRENATAL VITAMIN W DHA CAPSULE PO SCH (09:51)
[2020-03-25] MEDS: DOCUSATE SODIUM 100 MG CAPSULE PO SCH (09:51)
[2020-03-25] MEDS: NIFEDIPINE 30 MG TAB.ER.24 PO SCH (09:52)
[2020-03-25] MEDS: FUROSEMIDE 20 MG TABLET PO SCH (09:52)
[2020-03-25] MEDS: LABETALOL HCL 200 MG TABLET PO SCH (09:52)
[2020-03-25 10:09] LABS: ABSOLUTE BASOPHILS # (AUTO) 0.1 10^3/uL (0.0-0.2); ABSOLUTE EOSINOPHILS # (AUTO) 0.5 10^3/uL (0.0-0.6); ABSOLUTE LYMPHOCYTES (AUTO) 1.7 10^3/uL (0.5-4.7); ABSOLUTE MONOCYTES (AUTO) 1.1 10^3/uL (0.1-1.4); ABSOLUTE NEUT (AUTO) 14.4 10^3/uL (1.7-8.2); BASOPHILS % (AUTO) 0.4 % (0-2); HEMOGLOBIN 11.8 g/dL (12.0-15.5); LYMPHOCYTES % (AUTO) 9.5 % (13-45); MEAN CORPUSCULAR HEMOGLOBIN 29.2 pg (27.0-33.4); MEAN CORPUSCULAR HGB CONC 34.8 g/dL (32.0-36.0); MEAN CORPUSCULAR VOLUME 84 fl (80-97); PLATELET COUNT 341 10^3/uL (150-450); RED BLOOD COUNT 4.05 10^6/uL (3.72-5.28); SEGMENTED NEUTROPHILS % (AUTO) 81.1 % (42-78); TOTAL CELLS COUNTED % (AUTO) 100 %; WHITE BLOOD COUNT 17.8 10^3/uL (4.0-10.5)
--- NOTE | 2020-03-25 11:16 | PDOC DISCHARGE SUMMARY ---
Impression - Admit/DC Date/PCP Admission Date/Primary Care Provider: 03/23/20 05:58 ESTEVAN PEÑA MD Discharge Date: 03/25/20 - Discharge Diagnosis (1) Chronic hypertension affecting Is this a current diagnosis for this admission?: Yes (2) S/P repeat low transverse Is this a current diagnosis for this admission?: Yes (3) History of section Is this a current diagnosis for this admission?: Yes (4) History of hepatitis C Is this a current diagnosis for this admission?: Yes (5) Tobacco abuse Is this a current diagnosis for this admission?: Yes (6) Acute blood loss anemia Is this a current diagnosis for this admission?: Yes (7) History of anxiety Is this a current diagnosis for this admission?: Yes - Assessment Summary: 40yo G4 now P2 s/p repeat ppd 2, stable and ready for discharge. Understands warning s/s and reasons to rtc/[facility] prior to post op appt next monday - Additional Information Resuscitation Status: Full Code Discharge Diet: As Tolerated, Regular Discharge Activity: Activity As Tolerated, Balance Activity w/Rest, No Driving, No Lifting Over 10 Pounds, Pelvic Rest, No tub bath, Walk Frequently Referrals: ESTEVAN PEÑA MD [Primary Care Provider] - Prescriptions: Oxycodone HCl/Acetaminophen [Percocet 5-325 mg Tablet] 1 tab PO Q4HP PRN #20 tablet PRN Reason: For Pain Scale 3-5 Ibuprofen [Motrin 800 mg Tablet] 800 mg PO Q8HP PRN #20 tablet PRN Reason: Abdominal Cramping Docusate Sodium [Colace 100 mg Capsule] 100 mg PO BID #60 capsule Ferrous Sulfate [Feosol 325 mg Tablet] 325 mg PO BID #60 tablet Nifedipine [Procardia XL 30 mg Tablet] 30 mg PO DAILY #30 tab.er.24 Home Medications: Labetalol HCl [Normodyne 200 mg Tablet] 200 mg PO QID 03/16/20 Prenat 115/Iron Fum/Folic/Dss [ 19 Tablet] 1 each PO DAILY 03/16/20 Docusate Sodium [Colace 100 mg Capsule] 100 mg PO BID #60 capsule 03/25/20 Ferrous Sulfate [Feosol 325 mg Tablet] 325 mg PO BID #60 tablet 03/25/20 Ibuprofen [Motrin 800 mg Tablet] 800 mg PO Q8HP PRN #20 tablet 03/25/20 Nifedipine [Procardia XL 30 mg Tablet] 30 mg PO DAILY #30 tab.er.24 03/25/20 Oxycodone HCl/Acetaminophen [Percocet 5-325 mg Tablet] 1 tab PO Q4HP PRN #20 tablet 03/25/20 Results Laboratory Results: WBC 19.3 10^3/uL (4.0-10.5) H 03/24/20 06:42 RBC 3.57 10^6/uL (3.72-5.28) L 03/24/20 06:42 Hgb 10.3 g/dL (12.0-15.5) L 03/24/20 06:42 Hct 29.8 % (36.0-47.0) L 03/24/20 06:42 MCV 84 fl (80-97) 03/24/20 06:42 MCH 29.0 pg (27.0-33.4) 03/24/20 06:42 MCHC 34.6 g/dL (32.0-36.0) 03/24/20 06:42 RDW 13.6 % (11.5-14.0) 03/24/20 06:42 Plt Count 270 10^3/uL (150-450) 03/24/20 06:42 Lymph % (Auto) 11.1 % (13-45) L 03/16/20 08:30 Mckenzie % (Auto) 6.7 % (3-13) 03/16/20 08:30 Eos % (Auto) 2.2 % (0-6) 03/16/20 08:30 Baso % (Auto) 0.2 % (0-2) 03/16/20 08:30 Absolute Neuts (auto) 13.3 10^3/uL (1.7-8.2) H 03/16/20 08:30 Absolute Lymphs (auto) 1.9 10^3/uL (0.5-4.7) 03/16/20 08:30 Absolute Monos (auto) 1.1 10^3/uL (0.1-1.4) 03/16/20 08:30 Absolute Eos (auto) 0.4 10^3/uL (0.0-0.6) 03/16/20 08:30 Absolute Basos (auto) 0.0 10^3/uL (0.0-0.2) 03/16/20 08:30 Seg Neutrophils % 79.8 % (42-78) H 03/16/20 08:30 Urine Color YELLOW 03/16/20 08:03 Urine Appearance CLEAR 03/16/20 08:03 Urine pH 8.0 (5.0-9.0) 03/16/20 08:03 Ur Specific Hermon 1.008 03/16/20 08:03 Urine Protein NEGATIVE mg/dL (NEGATIVE) 03/16/20 08:03 Urine Glucose (UA) NEGATIVE mg/dL (NEGATIVE) 03/16/20 08:03 Urine Ketones NEGATIVE mg/dL (NEGATIVE) 03/16/20 08:03 Urine Blood MODERATE (NEGATIVE) H 03/16/20 08:03 Urine Nitrite NEGATIVE (NEGATIVE) 03/16/20 08:03 Urine Bilirubin NEGATIVE (NEGATIVE) 03/16/20 08:03 Urine Urobilinogen NEGATIVE mg/dL (<2.0) 03/16/20 08:03 Ur Leukocyte Esterase SMALL (NEGATIVE) H 03/16/20 08:03 Urine WBC (Auto) 2 /HPF 03/16/20 08:03 Urine RBC (Auto) 6 /HPF 03/16/20 08:03 Squamous Epi Cells Auto 4 /HPF 03/16/20 08:03 Urine Mucus (Auto) RARE /LPF 03/16/20 08:03 Urine Ascorbic Acid NEGATIVE (NEGATIVE) 03/16/20 08:03 Urine Opiates Screen NEGATIVE 03/16/20 08:03 Urine Methadone Screen NEGATIVE 03/16/20 08:03 Ur Barbiturates Screen NEGATIVE 03/16/20 08:03 Ur Phencyclidine Scrn NEGATIVE 03/16/20 08:03 Ur Amphetamines Screen NEGATIVE 03/16/20 08:03 U Benzodiazepines Scrn NEGATIVE 03/16/20 08:03 Urine Cocaine Screen NEGATIVE 03/16/20 08:03 U Marijuana (THC) Screen NEGATIVE 03/16/20 08:03 Blood Type O POSITIVE 03/22/20 11:30 Antibody Screen NEGATIVE 03/22/20 11:30
[2020-03-25 11:57] VITALS: BP 134/78
== END 2020-03-25 14:00 | disposition home or self-care (01) | DRG 787 ==
LOC: 2S 05:58
PROVIDERS: ADMIT Student in an Organized Health Care Education/Training Program; ATTEND Student in an Organized Health Care Education/Training Program
PROC: 10D00Z1 Extraction of Products of Conception, Low, Open Approach (ICD-10-PCS; principal; 2020-03-23 09:45)
DX: O10.02 Pre-existing essential hypertension complicating childbirth (principal); O99.834 Other infection carrier state complicating childbirth; D62 Acute posthemorrhagic anemia; O34.211 Maternal care for low transverse scar from previous cesarean delivery; O32.2XX0 Maternal care for transverse and oblique lie, not applicable or unspecified; O16.4 Unspecified maternal hypertension, complicating childbirth; O99.344 Other mental disorders complicating childbirth; F41.9 Anxiety disorder, unspecified; O99.02 Anemia complicating childbirth; Z22.8 Carrier of other infectious diseases; Z3A.37 37 weeks gestation of pregnancy; Z37.0 Single live birth
CPT/HCPCS: 1961; 36415; 59025; 80307; 81001; 85025; 85027; 86850; 86900; 86901; 94760; 94799; C1765; J0131; J0360; J0690; J1170; J1885; J1940; J2210; J2250; J2405; J2590; J3010; J3490; J7060; J7120